=== PATIENT | female | born 1975 | race Caucasian/White ===

== ENCOUNTER 2023-11-18 11:50 | Emergency (ER) | payer MEDICARE, OTHER, SELFPAY ==
[2023-11-18 11:58] VITALS: BP 108/61
[2023-11-18] MEDS: ULTRAM 50 MG PO (15:36)
[2023-11-18] MEDS: TUMS 1 TABLET PO (15:36)
[2023-11-18] MEDS: MOTRIN 400 MG PO (15:36)
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
[2023-11-18 18:53] LABS: HCG, Urine Qualitative Screen Negative
[2023-11-18 20:15] VITALS: BP 110/60
[2023-11-18] MEDS: FLAGYL 2000 MG PO (20:50)
[2023-11-18] MEDS: ZITHROMAX 1000 MG PO (20:50)
[2023-11-18] MEDS: ROCEPHIN 1.42860000000000009 MG IM (21:40)
== END 2023-11-19 00:39 ==
LOC: EMR 11:50
PROVIDERS: EMERGENCY PHYSICIAN Emergency Medicine; FAMILY PHYSICIAN Internal Medicine
DX: T76.21XA Adult sexual abuse, suspected, initial encounter (principal); Z86.73 Personal history of transient ischemic attack (TIA), and cerebral infarction without residual deficits; G35 Multiple sclerosis; Z87.891 Personal history of nicotine dependence
CPT/HCPCS: 99282; 96372; 81025

== ENCOUNTER 2024-11-14 16:02 | Emergency (ER) | payer MEDICARE, OTHER, SELFPAY ==
[2024-11-14 16:09] VITALS: BP 140/78
--- NOTE | 2024-11-14 16:45 | EDRN ---
Pt in wheelchair from triage, was given access to triage desk phone, she called her mother reportedly. Was on phone >10 minutes and asked to finish call as other patients needed access to the desk to register. Pt asked to move to . She requested
food and her medications, but was told by nursing staff here at desk and in triage area nothing by mouth at this time.
--- NOTE | 2024-11-14 16:56 | EDRN ---
Security assisted pt back to [facility] as she has been wheeling up to registration obstructing path for new patients and family.
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
[2024-11-14] MEDS: TORADOL 30 MG IM (18:27)
[2024-11-14] MEDS: DILAUDID 1 MG IM (18:28)
[2024-11-14 18:32] VITALS: BMI 40.0
[2024-11-14] MEDS: DILANTIN 400 MG PO (20:01)
[2024-11-14] MEDS: KEPPRA 1500 MG PO (20:01)
[2024-11-14 21:00] VITALS: BP 142/86
== END 2024-11-15 02:11 ==
LOC: EMR 16:02
PROVIDERS: EMERGENCY PHYSICIAN Emergency Medicine; FAMILY PHYSICIAN Internal Medicine
DX: S39.92XA Unspecified injury of lower back, initial encounter (principal); W18.39XA Other fall on same level, initial encounter; Z86.73 Personal history of transient ischemic attack (TIA), and cerebral infarction without residual deficits; Z87.891 Personal history of nicotine dependence
CPT/HCPCS: 96372; 99284; 72100; 72170; 72220